=== PATIENT | male | born 1935 | race Caucasian/White ===

== ENCOUNTER 2018-09-16 01:34 | Observation (INO) ==
[2018-09-16] MEDS ORDERED: Sod Chloride 0.9% Inj 1,000 ML IV.CONT SCH (02:00)
--- NOTE | 2018-09-16 02:23 | XR ---
EXAM DATE: 09/16/2018 2:11 AM EST AGE/SEX: 82 years / Male INDICATIONS: Abdominal pain, shortness of breath. CLINICAL DATA: This is the patient's initial encounter. Patient reports that signs and symptoms have been present for 1 day and indicates a pain score of 0/10. MEDICAL/SURGICAL HISTORY: None. None. COMPARISON: No prior exams available for comparison. FINDINGS: A single AP view of the chest demonstrates the lungs to be symmetrically aerated without evidence of mass, infiltrate or effusion. Atherosclerotic changes are present in the aorta with calcification. T here are overlying electrocardiogram leads. The cardiomediastinal contours are unremarkable. Osseous structures are intact. CONCLUSION: No acute cardiopulmonary disease. Electronically signed by: Jonny Chakraborty MD 09/16/2018 2:21 AM EST
[2018-09-16 02:52] LABS: Baso % (Auto) 0.4 % (0.0-2.0); Eos % (Auto) 0.3 % (0.0-4.0); Hematocrit 40.1 % (39.0-51.0); Hemoglobin 13.1 gm/dL (13.0-17.0); Lymph # (Auto) 0.5 th/mm3 (1.0-4.8); Lymph % (Auto) 7.8 % (9.0-44.0); Mean Corpuscular HGB Conc 32.7 % (32.0-36.0); Mean Corpuscular Hemoglobin 30.2 pg (27.0-34.0); Mean Corpuscular Volume 92.3 fL (80.0-100.0); Mean Platelet Volume 9.3 fL (7.0-11.0); Mono # (Auto) 0.3 th/mm3 (0.0-0.9); Mono % (Auto) 4.9 % (0.0-8.0); Neut # (Auto) 5.7 th/mm3 (1.8-7.7); Neut % (Auto) 86.6 % (16.0-70.0); Platelet Count 145 th/mm3 (150-450); Red Blood Count 4.34 mil/mm3 (4.50-5.90); Red Cell Distribution Width 13.8 % (11.6-17.2); White Blood Count 6.5 th/mm3 (4.0-11.0)
[2018-09-16 02:56] LABS: Amorphous Sediment,Urine Few /hpf; Bilirubin,Urine Negative (Negative); Clarity,Urine Cloudy (Clear); Color,Urine Yellow (Yellw/Straw); Glucose,Urine (UA) Negative (Negative); Leukocyte Esterase,Urine Negative (Negative); Mucus,Urine Few /lpf (Occasional); Nitrite,Urine Negative (Negative); Specific Gravity,Urine 1.013 (1.002-1.035); Squamous Epithelial Cell,Urine 1 /hpf (0-5)
[2018-09-16 02:59] LABS: Alanine Aminotransferase 7 U/L (12-78); Albumin 3.8 g/dL (3.4-5.0); Anion Gap 7 meq/L (5-15); Aspartate Aminotransferase 16 U/L (15-37); Blood Urea Nitrogen 22 mg/dL (7-18); Carbon Dioxide 26.1 meq/L (21.0-32.0); Chloride 107 meq/L (98-107); Glomerular Filtration Rate 70 mL/min (>89); Glucose,Random 153 mg/dL (74-106); Lipase 95 U/L (73-393); Magnesium 2.3 mg/dL (1.5-2.5); Potassium 4.3 meq/L (3.5-5.1); Sodium 140 meq/L (136-145)
[2018-09-16 03:02] LABS: Alkaline Phosphatase 70 U/L (45-117); Total Protein 7.2 g/dL (6.4-8.2)
[2018-09-16 03:04] LABS: Activated Partial Thrombo Time 26.1 sec (23.4-31.7); INR 1.1 Ratio; Prothrombin Time 10.9 sec (9.8-11.6)
--- NOTE | 2018-09-16 03:13 | ED ---
HPI General Chief Complaint: Abdominal Pain Stated Complaint: Medical Time Seen by Provider: 09/16/18 01:57 Source: patient Mode of arrival: EMS Limitations: no limitations History of Present Illness HPI narrative: 82-year-old male presents to the emergency department by EMS transport from home for some complaint of severe generalized abdominal pain primarily periumbilical with marked nausea and some spitting up no bilious emesis no coffee-ground emesis and no hematemesis. Patient denies any melena hematochezia or diarrhea. No fever or chills. No dysuria frequency urgency or hematuria. No injury or fall. No chest pain or shortness of breath. Patient rates pain as moderate to severe. Nonradiating. complaint: Reports abdominal pain Onset (ago): hour(s) Pain Consistency: constant Location: Reports periumbilical Quality: Reports cramping and aching Radiation: Reports none Migration to: Reports no migration Relieving factors: nothing Exacerbating factors: nothing Context: Denies foreign travel, possible food poisoning, sick contacts, recent antibiotic use, recent surgery/procedure, recent injury and history of similar episodes Associated symptoms: Reports nausea; Denies vomiting, diarrhea, fever, chills, constipation, dysuria, hematemesis, hematochezia, melena, hematuria, anorexia and syncope Treatments prior to arrival: Denies NSAIDs, prescription analgesics and antacids Related Data Home Medications Medication Instructions Recorded Confirmed Lactobacillus rhamnosus GG 1 cap PO DAILY 09/16/18 09/16/18 [Culturelle] amantadine HCl 200 mg PO BID 09/16/18 09/16/18 carbidopa-levodopa 1 tab PO HS 09/16/18 09/16/18 carbidopa-levodopa 1 tab PO QID 09/16/18 09/16/18 lisinopril 10 mg PO DAILY 09/16/18 09/16/18 oxybutynin chloride 5 mg PO DAILY 09/16/18 09/16/18 tamsulosin 0.4 mg PO BID 09/16/18 09/16/18 Allergies Allergy/AdvReac Type Severity Reaction Status Date / Time No Known Allergies Allergy Verified 09/16/18 01:58 Review of Systems ROS: all other systems reviewed are negative [facility] Medical History Medical History HTN (hypertension) (Acute) Parkinson disease (Acute) Social History Social History Substance History: No History of Abuse Second Hand Smoke Exposure: No Smoking Status: Former smoker Tobacco Type: Cigarettes How Often Do You Have a Drink Containing Alcohol: Monthly or less Recent Travel in [facility] within the Last 8 Weeks: No Recent Out of Country Travel within the Last 8 Weeks: No Immunization History Tetanus Immunization: >5 Years Exam Narrative Exam Narrative: GENERAL: Well-nourished, well-developed patient. SKIN: Focused skin assessment warm/dry. HEAD: Normocephalic. EYES: No scleral icterus. No injection or drainage. NECK: Supple, trachea midline. No JVD or lymphadenopathy. CARDIOVASCULAR: Regular rate and rhythm without murmurs, gallops, or rubs. RESPIRATORY: Breath sounds equal bilaterally. No accessory muscle use. GASTROINTESTINAL: Abdomen soft, mild periumbilical tenderness no palpable pulsatile mass no guarding no rebound, nondistended. MUSCULOSKELETAL: No cyanosis, or edema. BACK: Nontender without obvious deformity. No CVA tenderness. Course Initial Documented Vital Signs Temperature 98.7 F 09/16/18 02:06 Pulse Rate 74 09/16/18 02:06 Respiratory Rate 22 09/16/18 02:06 Blood Pressure 187/87 H 09/16/18 02:06 Pulse Oximetry 100 09/16/18 02:06 Last Documented Vital Signs Temperature 98.7 F 09/16/18 02:06 Pulse Rate 89 09/16/18 05:37 Respiratory Rate 17 09/16/18 05:37 Blood Pressure 162/79 H 09/16/18 05:37 Pulse Oximetry 97 09/16/18 05:37 Medical Decision Making MDM Narrative Medical decision making narrative: IV access obtained specimens collected and sent for resulting imaging study ordered Lab values remarkable for left shift by automated differential chemistries grossly within normal limits urinalysis no indication for culture and chest x- ray no subdiaphragmatic free air CT abdomen pelvis is pending CT abdomen pelvis remarkable for large left renal mass and ileus versus gastroenteritis pattern of the intestinal tract. Patient's case discussed with on-call medicine service for observation admission for bowel rest and IV fluids Medical Screen Exam Complete: Yes Emergency Medical Condition: Yes Differential Diagnosis Differential Diagnosis: Abdominal pain, cholecystitis, pancreatitis, bowel obstruction, mesenteric ischemia, appendicitis, diverticulitis, perforated viscus, abdominal aortic aneurysm, renal colic, ACS Medical Records Medical records reviewed: Yes I reviewed the patient's medical records. Lab Data Lab results reviewed: Yes I reviewed the patient's lab results. Result diagrams: 09/16/18 02:20 09/16/18 02:20 Lab Results 09/16/18 09/16/18 09/16/18 Range/Units 02:20 02:20 02:20 WBC (4.0-11.0) th/mm3 RBC (4.50-5.90) mil/mm3 Hgb (13.0-17.0) gm/dL Hct (39.0-51.0) % MCV (80.0-100.0) fL MCH (27.0-34.0) pg MCHC (32.0-36.0) % RDW (11.6-17.2) % Plt Count (150-450) th/mm3 MPV (7.0-11.0) fL Neut % (Auto) (16.0-70.0) % Lymph % (Auto) (9.0-44.0) % [place] % (Auto) (0.0-8.0) % Eos % (Auto) (0.0-4.0) % Baso % (Auto) (0.0-2.0) % Neut # (Auto) (1.8-7.7) th/mm3 Lymph # (Auto) (1.0-4.8) th/mm3 [place] # (Auto) (0.0-0.9) th/mm3 Eos # (Auto) (0.0-0.4) th/mm3 Baso # (Auto) (0.0-0.2) th/mm3 WBC Differential Differential Comment PT 10.9 (9.8-11.6) sec INR 1.1 Ratio APTT 26.1 (23.4-31.7) sec Sodium 140 (136-145) meq/L Potassium 4.3 (3.5-5.1) meq/L Chloride 107 (98-107) meq/L Carbon Dioxide 26.1 (21.0-32.0) meq/L Anion Gap 7 (5-15) meq/L BUN 22 H (7-18) mg/dL Creatinine 1.02 (0.60-1.30) mg/dL Estimated GFR 70 L (>89) mL/min Random Glucose 153 H (74-106) mg/dL Calcium 9.0 (8.5-10.1) mg/dL Magnesium 2.3 (1.5-2.5) mg/dL Total Bilirubin 0.5 (0.2-1.0) mg/dL AST 16 (15-37) U/L ALT 7 L (12-78) U/L Alkaline Phosphatase 70 (45-117) U/L Troponin I Less than 0.02 L (0.02-0.05) ng/mL Total Protein 7.2 (6.4-8.2) g/dL Albumin 3.8 (3.4-5.0) g/dL Lipase 95 (73-393) U/L Urine Color (Yellw/Straw) Urine Clarity (Clear) Urine pH (5.0-8.5) Ur Specific [place] (1.002-1.035) Urine Protein (Neg-Trace) mg/dL Urine Glucose (UA) (Negative) mg/dL Urine Ketones (Negative) mg/dL Urine Occult Blood (Negative) Urine Nitrate (Negative) Urine Bilirubin (Negative) Urine Urobilinogen (Less than 2) mg/dL Ur Leukocyte Esterase (Negative) Urine RBC (0-3) /hpf Urine WBC (0-5) /hpf Ur Squamous Epith Cells (0-5) /hpf Amorphous Sediment (None) /hpf Urine Mucus (Occasional) /lpf Micro UA Comment Ur Microscopic Review Urine Culture Comments Blood Type A Positive Blood Type Recheck Required Antibody Screen Negative 09/16/18 09/16/18 Range/Units 02:20 02:33 WBC 6.5 (4.0-11.0) th/mm3 RBC 4.34 L (4.50-5.90) mil/mm3 Hgb 13.1 (13.0-17.0) gm/dL Hct 40.1 (39.0-51.0) % MCV 92.3 (80.0-100.0) fL MCH 30.2 (27.0-34.0) pg MCHC 32.7 (32.0-36.0) % RDW 13.8 (11.6-17.2) % Plt Count 145 L (150-450) th/mm3 MPV 9.3 (7.0-11.0) fL Neut % (Auto) 86.6 H (16.0-70.0) % Lymph % (Auto) 7.8 L (9.0-44.0) % [place] % (Auto) 4.9 (0.0-8.0) % Eos % (Auto) 0.3 (0.0-4.0) % Baso % (Auto) 0.4 (0.0-2.0) % Neut # (Auto) 5.7 (1.8-7.7) th/mm3 Lymph # (Auto) 0.5 L (1.0-4.8) th/mm3 [place] # (Auto) 0.3 (0.0-0.9) th/mm3 Eos # (Auto) 0.0 (0.0-0.4) th/mm3 Baso # (Auto) 0.0 (0.0-0.2) th/mm3 WBC Differential . Differential Comment Auto diff final PT (9.8-11.6) sec INR Ratio APTT (23.4-31.7) sec Sodium (136-145) meq/L Potassium (3.5-5.1) meq/L Chloride (98-107) meq/L Carbon Dioxide (21.0-32.0) meq/L Anion Gap (5-15) meq/L BUN (7-18) mg/dL Creatinine (0.60-1.30) mg/dL Estimated GFR (>89) mL/min Random Glucose (74-106) mg/dL Calcium (8.5-10.1) mg/dL Magnesium (1.5-2.5) mg/dL Total Bilirubin (0.2-1.0) mg/dL AST (15-37) U/L ALT (12-78) U/L Alkaline Phosphatase (45-117) U/L Troponin I (0.02-0.05) ng/mL Total Protein (6.4-8.2) g/dL Albumin (3.4-5.0) g/dL Lipase (73-393) U/L Urine Color Yellow (Yellw/Straw) Urine Clarity Cloudy H (Clear) Urine pH 7.0 (5.0-8.5) Ur Specific [place] 1.013 (1.002-1.035) Urine Protein Negative (Neg-Trace) mg/dL Urine Glucose (UA) Negative (Negative) mg/dL Urine Ketones 20 (Negative) mg/dL Urine Occult Blood Negative (Negative) Urine Nitrate Negative (Negative) Urine Bilirubin Negative (Negative) Urine Urobilinogen Less than 2 (Less than 2) mg/dL Ur Leukocyte Esterase Negative (Negative) Urine RBC 9 H (0-3) /hpf Urine WBC 5 (0-5) /hpf Ur Squamous Epith Cells 1 (0-5) /hpf Amorphous Sediment Few H (None) /hpf Urine Mucus Few H (Occasional) /lpf Micro UA Comment Culture not ind Ur Microscopic Review Not Reportable Urine Culture Comments Culture not ind Blood Type Blood Type Recheck Antibody Screen Imaging Data Radiologist's impression: Abdomen/Pelvis CT 09/16/18 01:58 CONCLUSION: 1. 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 2. Nonspecific bowel gas pattern which may represent an ileus or gastroenteritis. A small bowel obstruction is less likely. 3. Small nonobstructing right renal calculus. Chest X-Ray 09/16/18 01:58 CONCLUSION: No acute cardiopulmonary disease. Discharge Plan Discharge Disposition Patient Disposition: 30 Still Patient Discharge Condition Condition: Stable Discharge Details Diagnosis: Ileus, Left kidney mass Physicians Team ED Provider: Ashley Tovar Primary Care Provider: UNKNOWN, Attending Provider: Radha Parra Status ED Status: Admitted Observation Patient
[2018-09-16] MEDS ORDERED: Morphine Inj 4 MG/ML Vial IV.PUSH ONE ×2 (03:36→05:46)
--- NOTE | 2018-09-16 04:32 | CT ---
EXAM DATE: 09/16/2018 4:06 AM EST AGE/SEX: 82 years / Male INDICATIONS: Abdominal pain with nausea and vomiting. CLINICAL DATA: This is the patient's initial encounter. Patient reports that signs and symptoms have been present for 1 day and indicates a pain score of 6/10. MEDICAL/SURGICAL HISTORY: Hypertension. Parkinson's disease. None. ORAL CONTRAST: No oral contrast ingested. RADIATION DOSE: 6.57 CTDI (mGy) COMPARISON: No prior exams available for comparison. TECHNIQUE: Multiple contiguous axial images were obtained through the abdomen and pelvis following b olus infusion of 90 ml Visipaque 320 (iodixanol) nonionic water-soluble contrast as a single exam d ose. No oral contrast ingested. Using automated exposure control and adjustment of the mA and/or kV according to patient size, radiation dose was kept as low as reasonably achievable to obtain optimal diagnostic quality images. DICOM format image data is available electronically for review and compar mayank. FINDINGS: Lower Lungs: The visualized lower lungs are clear. Liver: The liver has a homogeneous density without space-occupying lesion. There is no dilation of th e biliary tree. The gallbladder is unremarkable. Spleen: Homogeneous density without enlargement. Pancreas: Unremarkable without mass or calcification. Kidneys: The right kidney is unremarkable in appearance except for a nonobstructing 6 mm calculus. T he left kidney contains a large heterogeneous solid tumor mass in the central and upper kidney measur ing up to 10.3 x 8 x 9.3. This contains a small calcification. There is no hydronephrosis. Adrenal Glands: Unremarkable. Aorta: Atherosclerotic changes noted in the aorta with small distal infrarenal abdominal aortic ane urysm measuring up to approximately 3.4 x 3 cm. This contains peripheral thrombus. Bowel/Mesentery: No oral contrast was given limiting the sensitivity exam. There are multiple loops of nondilated small bowel multiple air-fluid levels. Gas and stool is noted segmentally in the colon. There is no free air or fluid. Abdominal Wall: Intact. Retroperitoneum: No evidence of adenopathy in the retrocrural, para-aortic, or deep pelvic regions. Bladder: Contours are smooth. Reproductive Organs: No abnormal masses or calcifications seen. Inguinal: The inguinal region is unremarkable without evidence of adenopathy. Bony Structures: Unremarkable. CONCLUSION: 1. Large solid tumor mass in the left mid and upper kidney most characteristic of renal cell carcino ma. 2. Nonspecific bowel gas pattern which may represent an ileus or gastroenteritis. A small bowel obst ruction is less likely. 3. Small nonobstructing right renal calculus. Electronically signed by: Jonny Chakraborty MD 09/16/2018 4:31 AM EST
[2018-09-16] MEDS: Heparin - SQ 10,000 UNITS/ML Vial SQ SCH ×2 (06:53→18:05)
[2018-09-16] MEDS: Sod Chloride 0.9% Inj 1,000 ML IV.CONT SCH ×2 (07:19→21:42)
--- NOTE | 2018-09-16 08:23 | P.HP ---
History of Present Illness Primary Care Physician: UNKNOWN Chief Complaint: Abdominal pain History of Present Illness: This is a pleasant 82 y/o male who came to the emergency department by EMS transport from home for some complaint of severe generalized abdominal pain primarily periumbilical with marked nausea and some spitting up no bilious emesis no coffee-ground emesis and no hematemesis. Patient denies any melena hematochezia or diarrhea. No fever or chills. No dysuria frequency urgency or hematuria. No injury or fall. No chest pain or shortness of breath. Patient rates pain as moderate to severe. Nonradiating. as constant abdominal pain, periumbilical, as a cramping sensation, he has Parkinson's Disease and Hypertension that was uncontrolled on admission, seen in the presence of his , he is been having this symptomatology since March this year and as per his words they slept on the evidence of GI symptoms and weight loss. Review of Systems All other systems reviewed negative except as stated in HPI PMFSH - History History Provided By: Patient, Family Member - Medical History Medical History: Medical History (Last Updated 09/16/18 @ 12:46 by Kendrick Cox MD) HTN (hypertension) Medical history unknown Surgical history unknown - Family History Family History: Family History (Last Updated 09/16/18 @ 12:46 by Kendrick Cox MD) Brother Family history of hypertension Mother Family history of cancer - Tobacco History Second Hand Smoke Exposure: No Tobacco Use In Past 30 Days: No Smoking Status: Former smoker Tobacco Type: Cigarettes - Alcohol History How Often Do You Have a Drink Containing Alcohol: Monthly or less - Substance Use History Substance History: No History of Abuse - Travel History Recent Travel in the [facility] Within the Last 8 Weeks: No Recent Travel Out of the Country Within the Last 8 Weeks: No - Immunization History Tetanus Immunization: >5 Years Medications and Allergies Active Medications: Active Medications Enalaprilat (Vasotec Inj) 1.25 mg IV.PUSH Q6H PRN PRN Reason: SBP>160, DBP>90 Heparin Sodium (Porcine) (Heparin Inj) 5,000 units SQ Q12H [facility] Last Admin: 09/16/18 06:53 Dose: 5,000 units Sodium Chloride (Ns Inj) 1,000 mls @ 125 mls/hr IV.CONT .Q8H [facility] Stop: 11/15/18 09:59 Last Admin: 09/16/18 02:15 Dose: 125 mls/hr Sodium Chloride (Ns Inj) 1,000 mls @ 80 mls/hr IV.CONT .[id number] [facility] Last Admin: 09/16/18 07:19 Dose: 80 mls/hr Ondansetron HCl (Zofran Inj) 4 mg IV.PUSH Q6H PRN PRN Reason: NAUSEA OR VOMITING Sodium Chloride (Ns Flush) 2 ml IV.FLUSH PRN PRN PRN Reason: FLUSH AFTER USING IV ACCESS Allergies Allergy/AdvReac Type Severity Reaction Status Date / Time No Known Allergies Allergy Verified 09/16/18 01:58 Home Medications Medication Instructions Recorded Confirmed Type Lactobacillus rhamnosus GG 1 cap PO DAILY 09/16/18 09/16/18 History [Culturelle] amantadine HCl 200 mg PO BID 09/16/18 09/16/18 History carbidopa-levodopa 1 tab PO HS 09/16/18 09/16/18 History carbidopa-levodopa 1 tab PO QID 09/16/18 09/16/18 History lisinopril 10 mg PO DAILY 09/16/18 09/16/18 History oxybutynin chloride 5 mg PO DAILY 09/16/18 09/16/18 History tamsulosin 0.4 mg PO BID 09/16/18 09/16/18 History Exam Vital signs: Vital Signs 09/16/18 02:06 09/16/18 02:10 09/16/18 05:37 Temperature 98.7 F Pulse Rate 74 74 89 Respiratory Rate 22 22 17 Blood Pressure 187/87 H 187/87 H 162/79 H Pulse Oximetry 100 100 97 09/16/18 06:56 Temperature Pulse Rate 83 Respiratory Rate 17 Blood Pressure 162/79 H Pulse Oximetry Intake & Output 09/15/18 09/16/18 09/16/18 18:59 06:59 18:59 Weight 64.41 kg 64.41 kg Other: Weight On Admission 64.41 kg Narrative: GENERAL: cachectic, No acute distress. SKIN: Focused skin assessment warm/dry. HEAD: Normocephalic. EYES: No scleral icterus. No injection or drainage. NECK: Supple, trachea midline. No JVD or lymphadenopathy. CARDIOVASCULAR: Regular rate and rhythm without murmurs, gallops, or rubs. RESPIRATORY: Breath sounds equal bilaterally. No accessory muscle use. GASTROINTESTINAL: Abdomen soft, mild periumbilical tenderness, positive ventral hernia. MUSCULOSKELETAL: No cyanosis, Edema 1+ BACK: Nontender without obvious deformity. No CVA tenderness. rative: IV access obtained specimens collected and sent for resulting imaging study ordered Results - Labs CBC & Chem 7: 09/16/18 02:20 09/16/18 02:20 Labs: Laboratory Results - last 24 hr 09/16/18 09/16/18 09/16/18 02:20 02:20 02:20 WBC RBC Hgb Hct MCV MCH MCHC RDW Plt Count MPV Neut % (Auto) Lymph % (Auto) [place] % (Auto) Eos % (Auto) Baso % (Auto) Neut # (Auto) Lymph # (Auto) [place] # (Auto) Eos # (Auto) Baso # (Auto) WBC Differential Differential Comment PT 10.9 INR 1.1 APTT 26.1 Sodium 140 Potassium 4.3 Chloride 107 Carbon Dioxide 26.1 Anion Gap 7 BUN 22 H Creatinine 1.02 Estimated GFR 70 L Random Glucose 153 H Calcium 9.0 Magnesium 2.3 Total Bilirubin 0.5 AST 16 ALT 7 L Alkaline Phosphatase 70 Troponin I Less than 0.02 L Total Protein 7.2 Albumin 3.8 Lipase 95 Urine Color Urine Clarity Urine pH Ur Specific [place] Urine Protein Urine Glucose (UA) Urine Ketones Urine Occult Blood Urine Nitrate Urine Bilirubin Urine Urobilinogen Ur Leukocyte Esterase Urine RBC Urine WBC Ur Squamous Epith Cells Amorphous Sediment Urine Mucus Micro UA Comment Ur Microscopic Review Urine Culture Comments Blood Type A Positive Blood Type Recheck Required Antibody Screen Negative 09/16/18 09/16/18 02:20 02:33 WBC 6.5 RBC 4.34 L Hgb 13.1 Hct 40.1 MCV 92.3 MCH 30.2 MCHC 32.7 RDW 13.8 Plt Count 145 L MPV 9.3 Neut % (Auto) 86.6 H Lymph % (Auto) 7.8 L [place] % (Auto) 4.9 Eos % (Auto) 0.3 Baso % (Auto) 0.4 Neut # (Auto) 5.7 Lymph # (Auto) 0.5 L [place] # (Auto) 0.3 Eos # (Auto) 0.0 Baso # (Auto) 0.0 WBC Differential . Differential Comment Auto diff final PT INR APTT Sodium Potassium Chloride Carbon Dioxide Anion Gap BUN Creatinine Estimated GFR Random Glucose Calcium Magnesium Total Bilirubin AST ALT Alkaline Phosphatase Troponin I Total Protein Albumin Lipase Urine Color Yellow Urine Clarity Cloudy H Urine pH 7.0 Ur Specific [place] 1.013 Urine Protein Negative Urine Glucose (UA) Negative Urine Ketones 20 Urine Occult Blood Negative Urine Nitrate Negative Urine Bilirubin Negative Urine Urobilinogen Less than 2 Ur Leukocyte Esterase Negative Urine RBC 9 H Urine WBC 5 Ur Squamous Epith Cells 1 Amorphous Sediment Few H Urine Mucus Few H Micro UA Comment Culture not ind Ur Microscopic Review Not Reportable Urine Culture Comments Culture not ind Blood Type Blood Type Recheck Antibody Screen - Imaging Abdomen/Pelvis CT 09/16/18 01:58 CONCLUSION: 1. 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 2. Nonspecific bowel gas pattern which may represent an ileus or gastroenteritis. A small bowel obstruction is less likely. 3. Small nonobstructing right renal calculus. Chest X-Ray 09/16/18 01:58 CONCLUSION: No acute cardiopulmonary disease. Caprini VTE Risk Assessment Caprini VTE Risk Assessment: Moderate/High Risk (score >= 2) Caprini Risk Assessment Model: Point Value = 1 Point Value = 2 Point Value = 3 Point Value = 5 Age 41-60 Minor surgery BMI > 25 kg/m2 Swollen legs Varicose veins or History of unexplained or recurrent spontaneous Oral contraceptives or hormone replacement Sepsis (< 1 month) Serious lung disease, including pneumonia (< 1 month) Abnormal pulmonary function Acute myocardial infarction Congestive heart failure (< 1 month) History of inflammatory bowel disease Medical patient at bed rest Age 61-74 Arthroscopic surgery Major open surgery (> 45 min) Laparoscopic surgery (> 45 min) Malignancy Confined to bed (> 72 hours) Immobilizing plaster cast Central venous access Age >= 75 History of VTE Family history of VTE Factor V Leiden Prothrombin [id number] Lupus anticoagulant Anticardiolipin antibodies Elevated serum homocysteine Heparin-induced thrombocytopenia Other congenital or acquired thrombophilia Stroke (< 1 month) Elective arthroplasty Hip, pelvis, or leg fracture Acute spinal cord injury (< 1 month) Prophylaxis Regimen: Total Risk Factor Score Risk Level Prophylaxis Regimen 0-1 Low Early ambulation 2 Moderate Order ONE of the following: *Sequential Compression Device (SCD) *Heparin 5000 units SQ BID 3-4 Higher Order ONE of the following medications: *Heparin 5000 units SQ TID *Enoxaparin/Lovenox 40 mg SQ daily (WT < 150 kg, CrCl > 30 mL/min) *Enoxaparin/Lovenox 30 mg SQ daily (WT < 150 kg, CrCl > 10-29 mL/min) *Enoxaparin/Lovenox 30 mg SQ BID (WT < 150 kg, CrCl > 30 mL/min) AND/OR *Sequential Compression Device (SCD) 5 or more Highest Order ONE of the following medications: *Heparin 5000 units SQ TID (Preferred with Epidurals) *Enoxaparin/Lovenox 40 mg SQ daily (WT < 150 kg, CrCl > 30 mL/min) *Enoxaparin/Lovenox 30 mg SQ daily (WT < 150 kg, CrCl > 10-29 mL/min) *Enoxaparin/Lovenox 30 mg SQ BID (WT < 150 kg, CrCl > 30 mL/min) AND *Sequential Compression Device (SCD) Assessment and Plan - Plan 1. Intractable Abdominal pain status post CT abdomen and Pelvis, found. 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 Small nonobstructing right renal calculus Nonspecific bowel gas pattern, asked for support services specialist consult, for evaluation, also asked for GI specialist consult, to reevaluate. 2. Ileus, Left kidney mass, awaiting Oncology and GI specialist consult. 3. Parkinson's Disease to continue home medicines. 4. Hypertension that was uncontrolled on admission, continue Home medicines. DVT prophylaxis with SCDs contraindicated Chemical Prophylaxis due to probable procedure to follow. Code Status: Full code. Discussed Condition With: Patient and His in Emergency room. Discharge Planning: Once cleared by specialists.
[2018-09-16] MEDS: Pantoprazole Inj 40 MG Vial IV.PUSH SCH (13:57)
--- NOTE | 2018-09-16 15:38 | MB ---
cc: Sigifredo Lake MD DATE: 09/16/2018 REQUESTING PHYSICIAN: Kendrick Cox MD REASON FOR CONSULTATION: Evaluation of newly diagnosed renal cancer. HISTORY OF PRESENT ILLNESS: An 82-year-old gentleman with a history of Parkinson's disease, has been admitted with a 1-2 days' history of abdominal pain, was found to have a small bowel ileus versus obstruction and a CT scan also demonstrated a large left renal mass. Hence, medical oncology consultation requested. The patient was seen in the emergency room and the patient and his family were interviewed. His son and were at the bedside and son informed me that because of his Parkinson disease, he is moving down to [facility] to live with him from [place]. Apparently, he had a history of BPH with severe urinary retention requiring hospitalization after emergency room visit for a catheterization. Subsequently, he did not have a prostate biopsy, but was being followed by Urology and was told that he does not have prostate cancer, but in the last several months, he has not been doing well with decreasing weight and lost about 25 pounds in the last 6 weeks according to him with some night sweats, but no fevers and no drenching night sweats. His appetite has been poor. REVIEW OF SYSTEMS: Negative for headaches, back pain or bone pains. Motor symptoms as mentioned with Parkinson's disease with rigidity and decreased global movements. No significant dysphagia. No cough, chest pain or shortness of breath. Abdominal symptoms as mentioned. No nausea, vomiting, hematuria or blood in stool or black stools. No back pain or bone pains. No fevers or night sweats. Weight loss as mentioned. PAST MEDICAL HISTORY: Other than Parkinson, he was healthy with no known coronary artery disease or OR. SOCIAL HISTORY: Ex-smoker. No alcohol abuse. No occupational exposure to chemicals or radiation. FAMILY HISTORY: Noncontributory. MEDICATIONS: He is on Vasotec, Zofran and subcutaneous heparin. PHYSICAL EXAMINATION: GENERAL: Elderly gentleman in no apparent distress, chronically ill looking, no acute distress. VITAL SIGNS: Stable. He is afebrile. Blood pressure was elevated on admission at 162/79. HEENT: Pallor present. No icterus. No palpable adenopathy in the neck, axilla or groins. With dry mucous membranes. No oropharyngeal lesions. No gum bleeding or hypertrophy. NEUROLOGIC: Alert and oriented x 4. Slow to respond. Flat facial expression and generalized bradykinesia, as well as tremor in the left upper extremity noted. CARDIOVASCULAR: S1, S2, regular rate and rhythm. LUNGS: Bilaterally clear without crackles or wheeze. ABDOMEN: Distended with an umbilical hernia and diffuse fullness without guarding, decreased to absent bowel sounds. No rigidity or rebound. No renal angle mass or tenderness could be felt. RECTAL: Deferred. EXTREMITIES: No edema or evidence of DVTs. LABORATORY DATA: Significant for white count of 6.2, hemoglobin 13.1, platelets 145. Creatinine is 1.02, BUN 22, GFR 70. CT of the abdomen and pelvis done earlier this morning showed large solid tumor in the left mid and upper kidney, most characteristic of renal cell carcinoma. Nonspecific small bowel gas pattern, which may represent an ileus or gastroenteritis. Small-bowel obstruction is less likely. Small nonobstructing right renal calculus. The left kidney tumor measures 10.3 x 8 x 9.3 cm. Chest x-ray is negative. IMPRESSION: An 82-year-old gentleman with a significant Parkinson disease, now with a newly diagnosed large left renal mass and history of benign prostatic hypertrophy causing severe bladder outlet obstruction. Currently not requiring catheterization. I had a 30-minute discussion with the patient and family regarding further options of evaluation and therapy. At this stage, he may not be a candidate for nephrectomy, specifically given his hypertension and history of urinary obstruction, right renal calculus, as well as his general condition, Parkinson disease, etc. Either way, we will obtain a urology consultation and the patient and family understand that if he is not a candidate for surgery per Urology, he will need to be treated with one of the following three options including systemic targeted therapy versus local radiation therapy for symptom relief if he has significant pain or bleeding from the renal tumor and a third option of supportive care without aggressive management was also discussed with the patient and family and they understood and we await urology consultation. We will consider a CT scan of the chest to rule out metastasis and we will see him and follow up in the office if he is from the hospital tomorrow. MD ECHO Castro/ani , 03:02 PM , 03:16 PM
--- NOTE | 2018-09-16 16:09 | P.CONGI ---
History of Present Illness Consult date: 09/16/18 Consult reason: Intractable abdominal pain Abdominal mass Chief complaint: Ileus; Renal Mass History of Present Illness: Patient is a 82-year-old male with past medical history significant for hypertension and Parkinson's disease. Surgical history includes umbilical and ventral hernia repair. Patient presented to the emergency department at [facility] today accompanied by his daughter with complaint of generalized abdominal pain. Upon consultation, patient reports pain left mid to upper quadrant states that it radiates to his back. Patient describes the pain as a sharp pain and states that it is constant. Onset of pain was last night at 9 PM patient states he took Gaviscon for same without relief. Patient denies any associated nausea or vomiting and states the only alleviating factor is the administration of morphine for pain. Movement is an aggravating factor per patient. Patient states last BM was yesterday with no noted bleeding. Patient denies constipation or diarrhea. States last colonoscopy was done 10 years ago to his recollection. States polyps were found and found to be benign. Patient denies heartburn or any symptoms of acid reflux. Patient denies difficulty swallowing. He endorses familial history significant for colon cancer-mother. Denies any use of tobacco or alcohol products. Patient denies any use of NSAIDs and states he takes aspirin occasionally. Our service has been consulted to evaluate patient for intractable abdominal pain. Of note, upon admission, CT abdomen and pelvis revealed large solid tumor mass in left mid and upper kidney suggestive of renal cell carcinoma. <Stephanie Mayorga - Last Filed: 09/16/18 16:09> Review of Systems All other systems reviewed negative except as stated in HPI <Stephanie Mayorga - Last Filed: 09/16/18 16:09> PMFSH - History History Provided By: Patient, Family Member - Medical History Medical History: Medical History (Last Updated 09/16/18 @ 13:39 by Geeta Mcfarland RN) HTN (hypertension) Medical history unknown Parkinson disease Surgical history unknown Urinary retention due to benign prostatic hyperplasia Ventral hernia - Surgical History Surgical History: Surgical History (Last Updated 09/16/18 @ 13:42 by Geeta Mcfarland RN) H/O arthroscopy of right knee H/O umbilical hernia repair - Family History Family History: Family History (Last Reviewed 09/16/18 @ 13:42 by Geeta Mcfarland RN) Brother Family history of hypertension Mother Family history of cancer - Tobacco History Second Hand Smoke Exposure: No Tobacco Use In Past 30 Days: No (quit 30 years ago) Smoking Status: Former smoker Tobacco Type: Cigarettes - Alcohol History How Often Do You Have a Drink Containing Alcohol: Never - Substance Use History Substance History: No History of Abuse - Travel History Recent Travel in the [place] Within the Last 8 Weeks: No Recent Travel Out of the Country Within the Last 8 Weeks: No - Immunization History Tetanus Immunization: >5 Years <Stephanie Mayorga - Last Filed: 09/16/18 16:09> - Medical History Medical History: Medical History (Last Updated 09/16/18 @ 13:39 by Geeta Mcfarland RN) HTN (hypertension) Medical history unknown Parkinson disease Surgical history unknown Urinary retention due to benign prostatic hyperplasia Ventral hernia - Surgical History Surgical History: Surgical History (Last Updated 09/16/18 @ 13:42 by Geeta Mcfarland RN) H/O arthroscopy of right knee H/O umbilical hernia repair - Family History Family History: Family History (Last Reviewed 09/16/18 @ 13:42 by Geeta Mcfarland RN) Brother Family history of hypertension Mother Family history of cancer <Keaton Eid - Last Filed: 09/16/18 19:57> Medications and Allergies Active Medications: Active Medications Enalaprilat (Vasotec Inj) 1.25 mg IV.PUSH Q6H PRN PRN Reason: SBP>160, DBP>90 Heparin Sodium (Porcine) (Heparin Inj) 5,000 units SQ Q12H [facility] Last Admin: 09/16/18 06:53 Dose: 5,000 units Sodium Chloride (Ns Inj) 1,000 mls @ 80 mls/hr IV.CONT .[id number] [facility] Last Infusion: 09/16/18 13:31 Dose: 80 mls/hr Ondansetron HCl (Zofran Inj) 4 mg IV.PUSH Q6H PRN PRN Reason: NAUSEA OR VOMITING Pantoprazole Sodium (Protonix Inj) 40 mg IV.PUSH Q24H [facility] Last Admin: 09/16/18 13:57 Dose: 40 mg Sodium Chloride (Ns Flush) 2 ml IV.FLUSH PRN PRN PRN Reason: FLUSH AFTER USING IV ACCESS <Stephanie Mayorga - Last Filed: 09/16/18 16:09> Active Medications: Active Medications Amantadine HCl (Symmetrel) 200 mg PO BID [facility] Carbidopa/Levodopa (Sinemet 25/100 Mg) 1 tab PO QID [facility] Carbidopa/Levodopa (Sinemet Cr 50/200 Mg) 1 tab PO HS [facility] Enalaprilat (Vasotec Inj) 1.25 mg IV.PUSH Q6H PRN PRN Reason: SBP>160, DBP>90 Last Admin: 09/16/18 19:27 Dose: 1.25 mg Heparin Sodium (Porcine) (Heparin Inj) 5,000 units SQ Q12H [facility] Last Admin: 09/16/18 18:05 Dose: 5,000 units Sodium Chloride (Ns Inj) 1,000 mls @ 80 mls/hr IV.CONT .[id number] [facility] Last Infusion: 09/16/18 13:31 Dose: 80 mls/hr Lisinopril (Prinivil) 10 mg PO DAILY [facility] Ondansetron HCl (Zofran Inj) 4 mg IV.PUSH Q6H PRN PRN Reason: NAUSEA OR VOMITING Oxybutynin Chloride (Ditropan) 5 mg PO DAILY [facility] Pantoprazole Sodium (Protonix Inj) 40 mg IV.PUSH Q24H [facility] Last Admin: 09/16/18 13:57 Dose: 40 mg Sodium Chloride (Ns Flush) 2 ml IV.FLUSH PRN PRN PRN Reason: FLUSH AFTER USING IV ACCESS Tamsulosin HCl (Flomax) 0.4 mg PO BID [facility] <Keaton Eid - Last Filed: 09/16/18 19:57> Allergies Allergy/AdvReac Type Severity Reaction Status Date / Time No Known Allergies Allergy Verified 09/16/18 01:58 Home Medications Medication Instructions Recorded Confirmed Type Lactobacillus rhamnosus GG 1 cap PO DAILY 09/16/18 09/16/18 History [Culturelle] amantadine HCl 200 mg PO BID 09/16/18 09/16/18 History carbidopa-levodopa 1 tab PO HS 09/16/18 09/16/18 History carbidopa-levodopa 1 tab PO QID 09/16/18 09/16/18 History lisinopril 10 mg PO DAILY 09/16/18 09/16/18 History oxybutynin chloride 5 mg PO DAILY 09/16/18 09/16/18 History tamsulosin 0.4 mg PO BID 09/16/18 09/16/18 History Exam Vital signs: Vital Signs 09/16/18 02:06 09/16/18 02:10 09/16/18 05:37 Temperature 98.7 F Pulse Rate 74 74 89 Respiratory Rate 22 22 17 Blood Pressure 187/87 H 187/87 H 162/79 H Pulse Oximetry 100 100 97 09/16/18 06:56 09/16/18 13:00 Temperature Pulse Rate 83 72 Respiratory Rate 17 16 Blood Pressure 162/79 H 165/77 H Pulse Oximetry 98 Intake & Output 09/15/18 09/16/18 09/16/18 18:59 06:59 18:59 Intake Total 1400 / 1400 Balance 1400 / 1400 Weight 64.41 kg 64.41 kg Intake: IV 1400 / 1400 NS Inj 1,000 ML @ 80 mls/hr IV. 1400 / 1400 CONT .[id number] [facility] Rx#:[id number] Other: Weight On Admission 64.41 kg - Constitutional mild distress Comments: Generalized abdominal pain, left mid to upper quadrant radiating to patient's back - Routine HEENT Exam Head: Present: normocephalic - Routine Respiratory Exam Present: CTA bilaterally. Absent: accessory muscle use - Routine Cardiovascular Exam Present: S1, S2 - Routine Abdominal Exam Present: soft, normoactive bowel sounds, tenderness, guarding. Absent: distended, firm, rigid - Routine Extremities Exam Present: pulses intact. Absent: edema - Routine Skin Exam Present: dry, warm - Routine Neurological Exam Present: alert - Routine Psychiatric Exam Present: normal affect, cooperative <Mayorga,Stephanie - Last Filed: 09/16/18 16:09> Vital signs: Vital Signs 09/16/18 02:06 09/16/18 02:10 09/16/18 05:37 Temperature 98.7 F Pulse Rate 74 74 89 Respiratory Rate 22 22 17 Blood Pressure 187/87 H 187/87 H 162/79 H Pulse Oximetry 100 100 97 09/16/18 06:56 09/16/18 13:00 09/16/18 16:00 Temperature 98.2 F Pulse Rate 83 72 79 Respiratory Rate 17 16 18 Blood Pressure 162/79 H 165/77 H 196/95 H Pulse Oximetry 98 96 Intake & Output 09/16/18 09/16/18 09/17/18 06:59 18:59 06:59 Intake Total 1400 / 1400 Balance 1400 / 1400 Weight 64.41 kg 64.41 kg Intake: IV 1400 / 1400 NS Inj 1,000 ML @ 80 mls/hr IV. 1400 / 1400 CONT .[id number] [facility] Rx#:[id number] Other: Weight On Admission 64.41 kg <Keaton Eid - Last Filed: 09/16/18 19:57> Results - Labs CBC & Chem 7: 09/16/18 02:20 09/16/18 02:20 Labs: Laboratory Results - last 24 hr 09/16/18 09/16/18 09/16/18 02:20 02:20 02:20 WBC RBC Hgb Hct MCV MCH MCHC RDW Plt Count MPV Neut % (Auto) Lymph % (Auto) Boyle % (Auto) Eos % (Auto) Baso % (Auto) Neut # (Auto) Lymph # (Auto) Boyle # (Auto) Eos # (Auto) Baso # (Auto) WBC Differential Differential Comment PT 10.9 INR 1.1 APTT 26.1 Sodium 140 Potassium 4.3 Chloride 107 Carbon Dioxide 26.1 Anion Gap 7 BUN 22 H Creatinine 1.02 Estimated GFR 70 L Random Glucose 153 H Calcium 9.0 Magnesium 2.3 Total Bilirubin 0.5 AST 16 ALT 7 L Alkaline Phosphatase 70 Troponin I Less than 0.02 L Total Protein 7.2 Albumin 3.8 Lipase 95 Urine Color Urine Clarity Urine pH Ur Specific Laurel Urine Protein Urine Glucose (UA) Urine Ketones Urine Occult Blood Urine Nitrate Urine Bilirubin Urine Urobilinogen Ur Leukocyte Esterase Urine RBC Urine WBC Ur Squamous Epith Cells Amorphous Sediment Urine Mucus Micro UA Comment Ur Microscopic Review Urine Culture Comments Blood Type A Positive Blood Type Recheck Required Antibody Screen Negative 09/16/18 09/16/18 02:20 02:33 WBC 6.5 RBC 4.34 L Hgb 13.1 Hct 40.1 MCV 92.3 MCH 30.2 MCHC 32.7 RDW 13.8 Plt Count 145 L MPV 9.3 Neut % (Auto) 86.6 H Lymph % (Auto) 7.8 L Boyle % (Auto) 4.9 Eos % (Auto) 0.3 Baso % (Auto) 0.4 Neut # (Auto) 5.7 Lymph # (Auto) 0.5 L Boyle # (Auto) 0.3 Eos # (Auto) 0.0 Baso # (Auto) 0.0 WBC Differential . Differential Comment Auto diff final PT INR APTT Sodium Potassium Chloride Carbon Dioxide Anion Gap BUN Creatinine Estimated GFR Random Glucose Calcium Magnesium Total Bilirubin AST ALT Alkaline Phosphatase Troponin I Total Protein Albumin Lipase Urine Color Yellow Urine Clarity Cloudy H Urine pH 7.0 Ur Specific Laurel 1.013 Urine Protein Negative Urine Glucose (UA) Negative Urine Ketones 20 Urine Occult Blood Negative Urine Nitrate Negative Urine Bilirubin Negative Urine Urobilinogen Less than 2 Ur Leukocyte Esterase Negative Urine RBC 9 H Urine WBC 5 Ur Squamous Epith Cells 1 Amorphous Sediment Few H Urine Mucus Few H Micro UA Comment Culture not ind Ur Microscopic Review Not Reportable Urine Culture Comments Culture not ind Blood Type Blood Type Recheck Antibody Screen - Imaging Impressions Abdomen/Pelvis CT 09/16/18 01:58 CONCLUSION: 1. 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 2. Nonspecific bowel gas pattern which may represent an ileus or gastroenteritis. A small bowel obstruction is less likely. 3. Small nonobstructing right renal calculus. Chest X-Ray 09/16/18 01:58 CONCLUSION: No acute cardiopulmonary disease. <Stephanie Mayorga - Last Filed: 09/16/18 16:09> - Labs CBC & Chem 7: 09/16/18 02:20 09/16/18 02:20 Labs: Laboratory Results - last 24 hr 09/16/18 09/16/18 09/16/18 02:20 02:20 02:20 WBC RBC Hgb Hct MCV MCH MCHC RDW Plt Count MPV Neut % (Auto) Lymph % (Auto) Boyle % (Auto) Eos % (Auto) Baso % (Auto) Neut # (Auto) Lymph # (Auto) Boyle # (Auto) Eos # (Auto) Baso # (Auto) WBC Differential Differential Comment PT 10.9 INR 1.1 APTT 26.1 Sodium 140 Potassium 4.3 Chloride 107 Carbon Dioxide 26.1 Anion Gap 7 BUN 22 H Creatinine 1.02 Estimated GFR 70 L Random Glucose 153 H Calcium 9.0 Magnesium 2.3 Total Bilirubin 0.5 AST 16 ALT 7 L Alkaline Phosphatase 70 Troponin I Less than 0.02 L Total Protein 7.2 Albumin 3.8 Triglycerides Cholesterol LDL Cholesterol, Calc HDL Cholesterol Cholesterol/HDL Ratio Lipase 95 TSH Urine Color Urine Clarity Urine pH Ur Specific Laurel Urine Protein Urine Glucose (UA) Urine Ketones Urine Occult Blood Urine Nitrate Urine Bilirubin Urine Urobilinogen Ur Leukocyte Esterase Urine RBC Urine WBC Ur Squamous Epith Cells Amorphous Sediment Urine Mucus Micro UA Comment Ur Microscopic Review Urine Culture Comments Blood Type A Positive Blood Type Recheck Required Antibody Screen Negative 09/16/18 09/16/18 09/16/18 02:20 02:33 16:32 WBC 6.5 RBC 4.34 L Hgb 13.1 Hct 40.1 MCV 92.3 MCH 30.2 MCHC 32.7 RDW 13.8 Plt Count 145 L MPV 9.3 Neut % (Auto) 86.6 H Lymph % (Auto) 7.8 L Boyle % (Auto) 4.9 Eos % (Auto) 0.3 Baso % (Auto) 0.4 Neut # (Auto) 5.7 Lymph # (Auto) 0.5 L Boyle # (Auto) 0.3 Eos # (Auto) 0.0 Baso # (Auto) 0.0 WBC Differential . Differential Comment Auto diff final PT INR APTT Sodium Potassium Chloride Carbon Dioxide Anion Gap BUN Creatinine Estimated GFR Random Glucose Calcium Magnesium Total Bilirubin AST ALT Alkaline Phosphatase Troponin I Total Protein Albumin Triglycerides 74 Cholesterol 198 LDL Cholesterol, Calc 133 H HDL Cholesterol 50.1 Cholesterol/HDL Ratio 3.95 Lipase TSH 1.380 Urine Color Yellow Urine Clarity Cloudy H Urine pH 7.0 Ur Specific Laurel 1.013 Urine Protein Negative Urine Glucose (UA) Negative Urine Ketones 20 Urine Occult Blood Negative Urine Nitrate Negative Urine Bilirubin Negative Urine Urobilinogen Less than 2 Ur Leukocyte Esterase Negative Urine RBC 9 H Urine WBC 5 Ur Squamous Epith Cells 1 Amorphous Sediment Few H Urine Mucus Few H Micro UA Comment Culture not ind Ur Microscopic Review Not Reportable Urine Culture Comments Culture not ind Blood Type Blood Type Recheck Antibody Screen - Imaging Impressions Abdomen/Pelvis CT 09/16/18 01:58 CONCLUSION: 1. 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 2. Nonspecific bowel gas pattern which may represent an ileus or gastroenteritis. A small bowel obstruction is less likely. 3. Small nonobstructing right renal calculus. Chest X-Ray 09/16/18 01:58 CONCLUSION: No acute cardiopulmonary disease. <Keaton Eid - Last Filed: 09/16/18 19:57> Assessment and Plan (1) Ileus Status: Acute Code(s): K56.7 - Ileus, unspecified - Plan Patient is a 82-year-old male with past medical history significant for hypertension and Parkinson's disease. Surgical history includes ventral and umbilical hernia repair. Patient presented to the emergency department at [facility] today accompanied by his daughter with complaint of generalized abdominal pain. Upon consultation, patient reports pain left mid to upper quadrant states that it radiates to his back. Patient describes the pain as a sharp pain and states that it is constant. Onset of pain was last night at 9 PM patient states he took Gaviscon for same without relief. Patient denies any associated nausea or vomiting and states the only alleviating factor is the administration of morphine for pain. Movement is an aggravating factor per patient. Patient states last BM was yesterday with no noted bleeding. Patient denies constipation or diarrhea. States last colonoscopy was done 10 years ago to his recollection. States polyps were found and found to be benign. Patient denies heartburn or any symptoms of acid reflux. Patient denies difficulty swallowing. He endorses familial history significant for colon cancer-mother. Denies any use of tobacco or alcohol products. Patient denies any use of NSAIDs and states he takes aspirin occasionally. Our service has been consulted to evaluate patient for intractable abdominal pain. Of note, upon admission, CT abdomen and pelvis revealed large solid tumor mass in left mid and upper kidney suggestive of renal cell carcinoma. Abdominal pain Ileus Patient presented to [facility] today with complaint of abdominal pain. Patient points to left mid and upper quadrant. Describes pain as sharp and constant alleviated only by morphine. 09/16/2018 CT abdomen and pelvis revealed the following--> 1. 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 2. Nonspecific bowel gas pattern which may represent an ileus or gastroenteritis. A small bowel obstruction is less likely. 3. Small nonobstructing right renal calculus. Patient's daughter reports that patient had BM yesterday and has been having daily BMs with positive flatus. Hemoglobin 13.1 hematocrit 40.1 WBC 6.5 total bilirubin 0.5 AST 16 ALT 7 alk phos 70 lipase 95 Plan -N.p.o. ice chips -May start clear liquid diet in the a.m. if no vomiting -Oncology following -Urology following -Monitor labs -Analgesics and antiemetics as per attending -Continue IV hydration -Continue PPI -Supportive care -Further recommendations to follow This patient has been seen by myself and Dr. Eid and this note is written on his behalf - Attending Attestation Dr. Eid <Stephanie Mayorga - Last Filed: 09/16/18 16:09> (1) Ileus Status: Acute Code(s): K56.7 - Ileus, unspecified - Plan Agree with above note, most likely renal cancer, nonspecific bowel gas pattern could be ileus continue current care and wait for oncology input <Keaton Eid - Last Filed: 09/16/18 19:57>
[2018-09-16 17:52] LABS: Chol/HDL Ratio 3.95 Ratio; HDL Cholesterol 50.1 mg/dL (40.0-60.0); Thyroid Stimulating Hormone 1.38 uIU/mL (0.358-3.740)
--- NOTE | 2018-09-16 18:13 | MB ---
cc: Julius Connors MD DATE: 09/16/2018 REASON FOR CONSULTATION: 1. Large left solid renal mass suspicious for renal cell carcinoma. 2. History of BPH. 3. History of Parkinson's disease. HISTORY OF PRESENT ILLNESS: The patient is an 82-year-old male with history of Parkinson's disease with prior urinary retention in the past, who came into the emergency department in by EMS as a transport from home earlier today with complaints of severe generalized abdominal pain, primarily periumbilical radiating to his left side with nausea and some vomiting. During workup, he had a CT abdomen and pelvis with and without contrast performed, which showed a large, greater than 6 cm upper pole left renal mass suspicious for renal cell carcinoma. Urology is consulted for these findings. The patient states he has no previous knowledge of this mass. He denies hematuria or flank pain, weight loss or bone or back pain. He states he has had difficulty urinating in the past and had a catheter placed, he thinks this past Oralia due to urinary retention, but currently, he states he has been voiding without difficulties. He does take both Flomax and oxybutynin. He denies history of kidney stones, urinary tract infections. Denies prior abdominal surgery or taking any blood thinners. Denies fevers, chills. Has nausea that is currently resolved. Denies any current pain, but he did receive morphine for the pain. PAST MEDICAL HISTORY: Hypertension, Parkinson's disease, BPH. PAST SURGICAL HISTORY: Circumcision, umbilical hernia repair, right knee arthroscopy. FAMILY HISTORY: No urethrolysis, or genitourinary malignancies. SOCIAL HISTORY: Quit smoking approximately 30 years ago. Denies alcohol or illicit drugs. Currently . HOME MEDICATIONS: 1. Carbidopa/levodopa. 2. Vasotec. 3. Oxybutynin. 4. Tamsulosin. 5. Lisinopril. 6. Amantadine. ALLERGIES: NO KNOWN DRUG ALLERGIES. REVIEW OF SYSTEMS: See HPI. All systems reviewed, otherwise negative. PHYSICAL EXAMINATION: VITAL SIGNS: Temperature 98.2, pulse 79, respiratory rate 18, BP 196/95, saturating 96% on room air. GENERAL: Alert and oriented x3, in no apparent distress, pleasant and cooperative gentleman who appears older than his stated age. HEENT: Head is normocephalic, atraumatic. Eyes: No scleral icterus extraocular muscles intact. NECK: Supple. Trachea midline. No JVD. External auditory hearing normal. SKIN: No ulcers or rashes visible. Mucous membranes warm and moist. LUNGS: Clear bilaterally. No wheezes, rales or rhonchi. HEART: Regular rate and rhythm. No murmurs, gallops, rubs. ABDOMEN: Soft, nontender and nondistended. Positive bowel sounds. GENITOURINARY: His penis is circumcised. Tests are descended bilaterally. Normal size and consistency without mass. He has no CVA tenderness. RECTAL: Not indicated at this time. EXTREMITIES: Nontender. No clubbing, cyanosis or edema. NEUROLOGIC: Cranial nerves 2-12 intact. Strength 5/5 in all 4 extremities. PSYCHIATRIC: Slightly flat slow affect, but answers questions appropriately. LABORATORY DATA: White count 6.5, hemoglobin 13.1, hematocrit 40.1, platelet count 145. INR 1.1. Sodium 140, potassium 4.3, chloride 107, bicarbonate 26.1, creatinine 1.02, BUN 22, GFR 70, glucose 153, calcium 9.0. Urinalysis slightly cloudy with 9 red blood cells. RADIOLOGY STUDIES: CT abdomen and pelvis with and without contrast images were reviewed and agree with radiologist's report. The patient has a large solid enhancing heterogeneous left upper pole renal mass suspicious for renal cell carcinoma. No lymphadenopathy is seen. No stones or hydronephrosis. ASSESSMENT: The patient is an 82-year-old male with history of Parkinson disease, who was admitted with lower abdominal pain, nausea and vomiting, currently resolved and was found to have incidental large left solid enhancing renal mass. 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 However, we will first rule out metastatic disease and obtain a CT of his chest without contrast. If negative, then his potential surgery could be arranged on an outpatient basis as he will be medically cleared and scheduled for in the future. We will continue tamsulosin and oxybutynin for now. We will check a postvoid residual after his next void to ensure that he is properly emptying. Thank you for this consult. Julius Connors MD EMF/ct , 04:53 PM , 05:06 PM
[2018-09-16] MEDS: Carbidopa/Levodopa CR 50/200 MG Tablet PO SCH (21:38)
[2018-09-16] MEDS: Amantadine 100 MG Capsule PO SCH (21:42)
[2018-09-17] MEDS: Heparin - SQ 10,000 UNITS/ML Vial SQ SCH (06:30)
[2018-09-17 07:47] LABS: Baso % (Auto) 0.5 % (0.0-2.0); Eos % (Auto) 0.6 % (0.0-4.0); Hematocrit 38.3 % (39.0-51.0); Hemoglobin 12.3 gm/dL (13.0-17.0); Lymph # (Auto) 0.7 th/mm3 (1.0-4.8); Mean Corpuscular HGB Conc 32.2 % (32.0-36.0); Mean Corpuscular Hemoglobin 31.8 pg (27.0-34.0); Mean Corpuscular Volume 98.8 fL (80.0-100.0); Mean Platelet Volume 9.3 fL (7.0-11.0); Mono # (Auto) 0.5 th/mm3 (0.0-0.9); Neut # (Auto) 4.8 th/mm3 (1.8-7.7); Neut % (Auto) 78.9 % (16.0-70.0); Platelet Count 146 th/mm3 (150-450); Red Blood Count 3.87 mil/mm3 (4.50-5.90); Red Cell Distribution Width 14.7 % (11.6-17.2); White Blood Count 6.1 th/mm3 (4.0-11.0)
[2018-09-17] MEDS: Sod Chloride 0.9% Inj 1,000 ML IV.CONT SCH ×2 (08:01→12:02)
[2018-09-17 08:07] LABS: Calcium 8.4 mg/dL (8.5-10.1); Carbon Dioxide 25.6 meq/L (21.0-32.0); Potassium 3.7 meq/L (3.5-5.1)
[2018-09-17] MEDS ORDERED: Non-Formulary Drug (Lactobacillus Rhamnosus Gg [Culturelle] 1 CAP) PO SCH (09:00)
[2018-09-17] MEDS ORDERED: Lisinopril 10 MG Tablet PO SCH (09:00)
[2018-09-17] MEDS: Amantadine 100 MG Capsule PO SCH ×2 (10:37→20:45)
--- NOTE | 2018-09-17 10:55 | P.PN ---
Subjective Interval history: f/u ileus and renal mass. Complains of mild left lower quadrant pain. He is passing gas no BM. Denies urinary complaints but had retention and hematuria last night. Seen with family Physical Exam Vital signs: Vital Signs 09/16/18 13:00 09/16/18 16:00 09/16/18 20:00 Temperature 98.2 F 98.7 F Pulse Rate 72 79 70 Respiratory Rate 16 18 14 Blood Pressure 165/77 H 196/95 H 154/74 H Pulse Oximetry 98 96 98 09/17/18 00:00 09/17/18 04:00 09/17/18 08:00 Temperature 98.7 F 98.4 F 98.8 F Pulse Rate 69 71 64 Respiratory Rate 16 14 16 Blood Pressure 138/69 163/78 H 158/74 H Pulse Oximetry 96 97 99 Intake & Output 09/16/18 09/17/18 09/17/18 18:59 06:59 18:59 Intake Total 1400 / 1400 600 / 600 700 / 700 Output Total 215 / 215 Balance 1400 / 1400 385 / 385 700 / 700 Weight 64.41 kg 64.41 kg Intake: IV 1400 / 1400 600 / 600 700 / 700 NS Inj 1,000 ML @ 80 mls/hr IV. 1400 / 1400 600 / 600 700 / 700 CONT .[id number] [facility] Rx#:[id number] Output: Urine 215 / 215 Other: # Voids 1 Weight On Admission 64.41 kg Narrative: GENERAL: cachectic, No acute distress. SKIN: Focused skin assessment warm/dry. CARDIOVASCULAR: Regular rate and rhythm without murmurs, gallops, or rubs. RESPIRATORY: Breath sounds equal bilaterally. No accessory muscle use. GASTROINTESTINAL: Abdomen soft, nontender, positive ventral hernia. MUSCULOSKELETAL: No cyanosis, Edema 1+ BACK: Nontender without obvious deformity. No CVA tenderness. Results - Labs CBC & Chem 7: 09/17/18 06:29 09/17/18 06:29 Laboratory Results - last 24 hr 09/16/18 09/16/18 09/17/18 16:32 16:32 03:27 WBC RBC Hgb Hct MCV MCH MCHC RDW Plt Count MPV Neut % (Auto) Lymph % (Auto) [place] % (Auto) Eos % (Auto) Baso % (Auto) Neut # (Auto) Lymph # (Auto) [place] # (Auto) Eos # (Auto) Baso # (Auto) WBC Differential Differential Comment Sodium Potassium Chloride Carbon Dioxide Anion Gap BUN Creatinine Estimated GFR POC Glucose 96 Random Glucose Hemoglobin A1c 5.0 Calcium Triglycerides 74 Cholesterol 198 LDL Cholesterol, Calc 133 H HDL Cholesterol 50.1 Cholesterol/HDL Ratio 3.95 TSH 1.380 09/17/18 09/17/18 06:29 06:29 WBC 6.1 RBC 3.87 L Hgb 12.3 L Hct 38.3 L MCV 98.8 D MCH 31.8 MCHC 32.2 RDW 14.7 Plt Count 146 L MPV 9.3 Neut % (Auto) 78.9 H Lymph % (Auto) 12.0 [place] % (Auto) 8.0 Eos % (Auto) 0.6 Baso % (Auto) 0.5 Neut # (Auto) 4.8 Lymph # (Auto) 0.7 L [place] # (Auto) 0.5 Eos # (Auto) 0.0 Baso # (Auto) 0.0 WBC Differential . Differential Comment Auto diff final Sodium 142 Potassium 3.7 Chloride 108 H Carbon Dioxide 25.6 Anion Gap 8 BUN 15 Creatinine 1.02 Estimated GFR 70 L POC Glucose Random Glucose 92 Hemoglobin A1c Calcium 8.4 L Triglycerides Cholesterol LDL Cholesterol, Calc HDL Cholesterol Cholesterol/HDL Ratio TSH - Imaging ITS Impressions Abdomen/Pelvis CT 09/16/18 01:58 CONCLUSION: 1. 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 2. Nonspecific bowel gas pattern which may represent an ileus or gastroenteritis. A small bowel obstruction is less likely. 3. Small nonobstructing right renal calculus. Chest X-Ray 09/16/18 01:58 CONCLUSION: No acute cardiopulmonary disease. - Procedures none Assessment and Plan - Plan 1. Intractable Abdominal pain status post CT abdomen and Pelvis, found. 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 Gu recommends op f/u pending Chest CT. Oncology also consulted. Had hematuria and retention. Ct Oxybutynin and flomax. Bladder scan 2. Ileus. Advance diet as tolerated josé antonio order clears 3. Parkinson's Disease to continue home medicines. 4. Hypertension. Improving. Continue Home medicines. PT eval DVT prophylaxis with SCDs contraindicated Chemical Prophylaxis due to probable procedure to follow. Discharge Planning: possible dc in 1-2 days with [facility] PT
[2018-09-17] MEDS ORDERED: Morphine Inj 4 MG/ML Vial IV.PUSH PRN (11:11)
[2018-09-17] MEDS ORDERED: Ketorolac Inj 30 MG/ML (IVP) Vial IV.PUSH PRN (11:11)
[2018-09-17] MEDS ORDERED: Naloxone Inj 0.4 MG/ML Vial IV.PUSH PRN (11:11)
[2018-09-17] MEDS ORDERED: Acetaminophen 325 MG Tablet PO PRN (11:11)
[2018-09-17] MEDS: Ketorolac Inj 30 MG/ML (IVP) Vial IV.PUSH PRN (11:37)
[2018-09-17] MEDS: Pantoprazole Inj 40 MG Vial IV.PUSH SCH (13:41)
--- NOTE | 2018-09-17 13:41 | CT ---
EXAM DATE: 09/17/2018 1:28 PM EST AGE/SEX: 82 years / Male INDICATIONS: Large left renal mass, evaluate for metastatic disease. CLINICAL DATA: This is the patient's initial encounter. Patient reports that signs and symptoms have been present for 1 day and indicates a pain score of 2/10. MEDICAL/SURGICAL HISTORY: Hypertension. Parkinson's disease. Ventral hernia. . Hernia repair. RADIATION DOSE: 6.90 CTDI (mGy) COMPARISON: [facility] [place], CT ABDOMEN & PELVIS W CONTRAST, 09/16/2018. . TECHNIQUE: Multiple contiguous axial images were obtained through the chest without contrast. Image s were obtained in suspended respiration using multiple row detector helical technique. Using automa arjun exposure control and adjustment of the mA and/or kV according to patient size, radiation dose was kept as low as reasonably achievable to obtain optimal diagnostic quality images. DICOM format imag e data is available electronically for review and comparison. FINDINGS: Lungs: Minimal apical emphysematous changes. No suspicious lung lesions. Mediastinum: There is good visualization of the great vessels of the middle mediastinum. No evidenc e of mediastinal or hilar adenopathy/mass. Moderate atherosclerotic vascular calcifications including LAD. Pleurae: Minimal pleural thickening on the right Axillae: Unremarkable. Bony Structures: Degenerative changes evident Miscellaneous: Left Renal cell carcinoma. CONCLUSION: 1. Negative for metastatic disease. 2. Apical emphysematous changes with moderate coronary calcifications. Electronically signed by: Kali Marino MD 09/17/2018 1:40 PM EST
--- NOTE | 2018-09-17 13:57 | P.DCO ---
- Diagnosis (1) Ileus Status: Acute (2) Left kidney mass Status: Acute - Physical Therapy Order: Evaluate and treat, Improve ambulation, Strength and gait training - Case Management Consult Case Management Consult-Home Health: Yes - Certification I have seen patient Isidro Tong on 09/17/18. My clinical findings support the need for the requested home health care services because: Deconditioned with increased weakness I certify that my clinical findings support that this patient is homebound because: Unsteady gait/balance
--- NOTE | 2018-09-17 19:07 | P.PNGI ---
Subjective Interval history: Patient laying comfortably in bed Denies any abdominal pain nausea or vomiting <MayorgaMag renaeStephanie - Last Filed: 09/17/18 19:02> Physical Exam Vital signs: Vital Signs 09/16/18 20:00 09/17/18 00:00 09/17/18 04:00 Temperature 98.7 F 98.7 F 98.4 F Pulse Rate 70 69 71 Respiratory Rate 14 16 14 Blood Pressure 154/74 H 138/69 163/78 H Pulse Oximetry 98 96 97 09/17/18 08:00 09/17/18 16:00 Temperature 98.8 F 97.4 F L Pulse Rate 64 75 Respiratory Rate 16 18 Blood Pressure 158/74 H 170/85 H Pulse Oximetry 99 99 Intake & Output 09/17/18 09/17/18 09/18/18 06:59 18:59 06:59 Intake Total 600 / 600 1700 / 1700 Output Total 215 / 215 Balance 385 / 385 1700 / 1700 Weight 64.41 kg Intake: IV 600 / 600 1700 / 1700 NS Inj 1,000 ML @ 80 mls/hr IV. 600 / 600 1700 / 1700 CONT .[id number] [facility] Rx#:[id number] Output: Urine 215 / 215 Other: # Voids 1 5 - Constitutional no acute distress - Routine HEENT Exam Head: Present: normocephalic - Routine Respiratory Exam Absent: accessory muscle use - Routine Abdominal Exam Present: soft. Absent: tenderness, guarding, firm Comments: Distant bowel sounds - Routine Skin Exam Present: dry, warm - Routine Neurological Exam Present: alert <MayorgaStephanie - Last Filed: 09/17/18 19:02> Vital signs: Vital Signs 09/16/18 20:00 09/17/18 00:00 09/17/18 04:00 Temperature 98.7 F 98.7 F 98.4 F Pulse Rate 70 69 71 Respiratory Rate 14 16 14 Blood Pressure 154/74 H 138/69 163/78 H Pulse Oximetry 98 96 97 09/17/18 08:00 09/17/18 16:00 Temperature 98.8 F 97.4 F L Pulse Rate 64 75 Respiratory Rate 16 18 Blood Pressure 158/74 H 170/85 H Pulse Oximetry 99 99 Intake & Output 11/16/18 11/16/18 11/17/18 06:59 18:59 06:59 Intake Total 600 / 600 1700 / 1700 Output Total 215 / 215 Balance 385 / 385 1700 / 1700 Weight 64.41 kg Intake: IV 600 / 600 1700 / 1700 NS Inj 1,000 ML @ 80 mls/hr IV. 600 / 600 1700 / 1700 CONT .[id number] [facility] Rx#:[id number] Output: Urine 215 / 215 Other: # Voids 1 5 <HemramyaAmmar - Last Filed: 09/17/18 19:25> Results - Labs CBC & Chem 7: 09/17/18 06:29 09/17/18 06:29 Laboratory Results - last 24 hr 09/16/18 09/17/18 09/17/18 16:32 03:27 06:29 WBC 6.1 RBC 3.87 L Hgb 12.3 L Hct 38.3 L MCV 98.8 D MCH 31.8 MCHC 32.2 RDW 14.7 Plt Count 146 L MPV 9.3 Neut % (Auto) 78.9 H Lymph % (Auto) 12.0 [place] % (Auto) 8.0 Eos % (Auto) 0.6 Baso % (Auto) 0.5 Neut # (Auto) 4.8 Lymph # (Auto) 0.7 L [place] # (Auto) 0.5 Eos # (Auto) 0.0 Baso # (Auto) 0.0 WBC Differential . Differential Comment Auto diff final Sodium Potassium Chloride Carbon Dioxide Anion Gap BUN Creatinine Estimated GFR POC Glucose 96 Random Glucose Hemoglobin A1c 5.0 Calcium 09/17/18 06:29 WBC RBC Hgb Hct MCV MCH MCHC RDW Plt Count MPV Neut % (Auto) Lymph % (Auto) [place] % (Auto) Eos % (Auto) Baso % (Auto) Neut # (Auto) Lymph # (Auto) [place] # (Auto) Eos # (Auto) Baso # (Auto) WBC Differential Differential Comment Sodium 142 Potassium 3.7 Chloride 108 H Carbon Dioxide 25.6 Anion Gap 8 BUN 15 Creatinine 1.02 Estimated GFR 70 L POC Glucose Random Glucose 92 Hemoglobin A1c Calcium 8.4 L - Imaging Impressions Chest CT 09/17/18 00:00 CONCLUSION: 1. Negative for metastatic disease. 2. Apical emphysematous changes with moderate coronary calcifications. - Procedures none <Mayorga,Stephanie - Last Filed: 09/17/18 19:02> - Labs CBC & Chem 7: 09/17/18 06:29 09/17/18 06:29 Laboratory Results - last 24 hr 09/16/18 09/17/18 09/17/18 16:32 03:27 06:29 WBC 6.1 RBC 3.87 L Hgb 12.3 L Hct 38.3 L MCV 98.8 D MCH 31.8 MCHC 32.2 RDW 14.7 Plt Count 146 L MPV 9.3 Neut % (Auto) 78.9 H Lymph % (Auto) 12.0 [place] % (Auto) 8.0 Eos % (Auto) 0.6 Baso % (Auto) 0.5 Neut # (Auto) 4.8 Lymph # (Auto) 0.7 L [place] # (Auto) 0.5 Eos # (Auto) 0.0 Baso # (Auto) 0.0 WBC Differential . Differential Comment Auto diff final Sodium Potassium Chloride Carbon Dioxide Anion Gap BUN Creatinine Estimated GFR POC Glucose 96 Random Glucose Hemoglobin A1c 5.0 Calcium 09/17/18 06:29 WBC RBC Hgb Hct MCV MCH MCHC RDW Plt Count MPV Neut % (Auto) Lymph % (Auto) [place] % (Auto) Eos % (Auto) Baso % (Auto) Neut # (Auto) Lymph # (Auto) [place] # (Auto) Eos # (Auto) Baso # (Auto) WBC Differential Differential Comment Sodium 142 Potassium 3.7 Chloride 108 H Carbon Dioxide 25.6 Anion Gap 8 BUN 15 Creatinine 1.02 Estimated GFR 70 L POC Glucose Random Glucose 92 Hemoglobin A1c Calcium 8.4 L - Imaging Impressions Chest CT 09/17/18 00:00 CONCLUSION: 1. Negative for metastatic disease. 2. Apical emphysematous changes with moderate coronary calcifications. <Keaton Eid - Last Filed: 09/17/18 19:25> Assessment and Plan (1) Ileus Status: Acute Code(s): K56.7 - Ileus, unspecified - Plan 09/17/2018 Abdominal pain Ileus Patient resting comfortably and denies any abdominal pain nausea or vomiting at this time. Hemoglobin 12.3 hematocrit 38.3 platelet count 146 Plan -Clear liquid diet -Oncology following -Urology following -Continue to monitor labs -Analgesics and antiemetics as per attending -PPI -Supportive care -Further recommendations to follow This patient has been seen by myself and Dr. Eid and this note is written on his behalf - Attending Attestation Dr. Eid <Stephanie Mayorga - Last Filed: 09/17/18 19:02> (1) Ileus Status: Acute Code(s): K56.7 - Ileus, unspecified - Plan Patient was seen and examined, agree with above note, antiemetics and supportive care at this point, hemoglobin stable, symptoms subsiding <Keaton Eid - Last Filed: 09/17/18 19:25>
[2018-09-17] MEDS: Carbidopa/Levodopa CR 50/200 MG Tablet PO SCH (20:44)
[2018-09-18] MEDS: Sod Chloride 0.9% Inj 1,000 ML IV.CONT SCH ×2 (01:49→14:44)
[2018-09-18] MEDS: Ketorolac Inj 30 MG/ML (IVP) Vial IV.PUSH PRN (01:50)
--- NOTE | 2018-09-18 06:52 | XR ---
EXAM DATE: 09/18/2018 6:41 AM EST AGE/SEX: 82 years / Male INDICATIONS: Abdominal distention. CLINICAL DATA: This is the patient's subsequent encounter. Patient reports that signs and symptoms h ave been present for 3 days and indicates a pain score of 0/10. MEDICAL/SURGICAL HISTORY: . Hypertension. Parkinson's disease. Ventral hernia. . Hernia repai r. COMPARISON: No prior exams available for comparison. FINDINGS: The abdominal bowel gas pattern is normal. No abnormal masses, calcifications, or organomegaly is s een. The osseous structures are unremarkable. CONCLUSION: Stool and air throughout the colon. Previous hernia surgery Electronically signed by: Asael Mantilla MD 09/18/2018 6:50 AM EST
[2018-09-18 07:16] LABS: Baso % (Auto) 0.6 % (0.0-2.0); Eos # (Auto) 0.1 th/mm3 (0.0-0.4); Eos % (Auto) 0.9 % (0.0-4.0); Hematocrit 39.1 % (39.0-51.0); Hemoglobin 13.2 gm/dL (13.0-17.0); Lymph # (Auto) 0.6 th/mm3 (1.0-4.8); Lymph % (Auto) 9.3 % (9.0-44.0); Mean Corpuscular HGB Conc 33.7 % (32.0-36.0); Mean Corpuscular Hemoglobin 31.1 pg (27.0-34.0); Mean Corpuscular Volume 92.4 fL (80.0-100.0); Mono # (Auto) 0.6 th/mm3 (0.0-0.9); Mono % (Auto) 9.6 % (0.0-8.0); Neut # (Auto) 5.2 th/mm3 (1.8-7.7); Neut % (Auto) 79.6 % (16.0-70.0); Platelet Count 133 th/mm3 (150-450); Red Blood Count 4.24 mil/mm3 (4.50-5.90); Red Cell Distribution Width 13.5 % (11.6-17.2); White Blood Count 6.6 th/mm3 (4.0-11.0)
[2018-09-18 07:34] LABS: Calcium 8.7 mg/dL (8.5-10.1); Carbon Dioxide 22.9 meq/L (21.0-32.0); Potassium 3.5 meq/L (3.5-5.1)
[2018-09-18 07:44] VITALS: PULSE 88; O2SAT 98
[2018-09-18] MEDS ORDERED: Bisacodyl 10 MG Supp RECTAL PRN (08:43)
[2018-09-18] MEDS: Amantadine 100 MG Capsule PO SCH (08:58)
[2018-09-18] MEDS ORDERED: Lisinopril 10 MG Tablet PO SCH (09:00)
[2018-09-18] MEDS ORDERED: Senna/Docusate Sodium 8.6/50 MG Tablet PO SCH (09:00)
[2018-09-18] MEDS ORDERED: Potassium Bicarbonate 25 MEQ Effervescent Tablet PO ONE (10:00)
[2018-09-18 12:15] VITALS: BP 164/91; RESP 20; TEMP 97.8
--- NOTE | 2018-09-18 12:42 | P.PN ---
Subjective Interval history: F/u Ileus. No abd pain and nausea. Passing gas no BM Physical Exam Vital signs: Vital Signs 09/17/18 16:00 09/17/18 20:00 09/18/18 00:00 Temperature 97.4 F L 98.0 F 98.2 F Pulse Rate 75 82 70 Respiratory Rate 18 18 18 Blood Pressure 170/85 H 144/68 H 179/84 H Pulse Oximetry 99 95 98 09/18/18 04:00 09/18/18 04:54 09/18/18 07:44 Temperature 97.9 F 97.4 F L Pulse Rate 92 H 88 Respiratory Rate 18 16 Blood Pressure 183/91 H 178/87 H 161/83 H Pulse Oximetry 97 98 09/18/18 12:00 Temperature 97.8 F Pulse Rate 88 Respiratory Rate 20 Blood Pressure 164/91 H Pulse Oximetry 98 Intake & Output 09/17/18 09/18/18 09/18/18 18:59 06:59 18:59 Intake Total 1700 / 1700 1000 / 1000 Balance 1700 / 1700 1000 / 1000 Intake: IV 1700 / 1700 1000 / 1000 NS Inj 1,000 ML @ 80 mls/hr IV. 1700 / 1700 1000 / 1000 CONT .[id number] [facility] Rx#:[id number] Other: # Voids 5 Narrative: GENERAL: cachectic, No acute distress. SKIN: Focused skin assessment warm/dry. CARDIOVASCULAR: Regular rate and rhythm without murmurs, gallops, or rubs. RESPIRATORY: Breath sounds equal bilaterally. No accessory muscle use. GASTROINTESTINAL: Abdomen soft, nontender, positive ventral hernia. MUSCULOSKELETAL: No cyanosis, Edema 1+ Results - Labs CBC & Chem 7: 09/18/18 06:45 09/18/18 06:45 Laboratory Results - last 24 hr 09/18/18 09/18/18 06:45 06:45 WBC 6.6 RBC 4.24 L Hgb 13.2 Hct 39.1 MCV 92.4 D MCH 31.1 MCHC 33.7 RDW 13.5 Plt Count 133 L MPV 9.0 Neut % (Auto) 79.6 H Lymph % (Auto) 9.3 [place] % (Auto) 9.6 H Eos % (Auto) 0.9 Baso % (Auto) 0.6 Neut # (Auto) 5.2 Lymph # (Auto) 0.6 L [place] # (Auto) 0.6 Eos # (Auto) 0.1 Baso # (Auto) 0.0 WBC Differential . Differential Comment Auto diff final Sodium 141 Potassium 3.5 Chloride 107 Carbon Dioxide 22.9 Anion Gap 11 BUN 13 Creatinine 1.15 Estimated GFR 61 L Random Glucose 116 H Calcium 8.7 Magnesium 2.0 - Imaging Impressions Chest CT 09/17/18 00:00 CONCLUSION: 1. Negative for metastatic disease. 2. Apical emphysematous changes with moderate coronary calcifications. Abdomen X-Ray 09/18/18 06:00 CONCLUSION: Stool and air throughout the colon. Previous hernia surgery - Procedures none Assessment and Plan - Assessment (1) Ileus Code(s): K56.7 - Ileus, unspecified Status: Acute (2) Left kidney mass Code(s): N28.89 - Other specified disorders of kidney and ureter Status: Acute - Plan 1. Intractable Abdominal pain status post CT abdomen and Pelvis, found. 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 Chest CT w/o mets. Resolved abdominal pain. Mild intermittent hematuria w/o urinary retention. Continue Flomax and oxybutynin. O/p f/u with and Oncology. 2. Ileus. Resolving. Advance diet as tolerated we will order regular diet. Continue bowel regimen 3. Parkinson's Disease to continue home medicines. 4. Hypertension. Improving. Continue Home medicines increase lisinopril to 10 mg twice a day. PT recommends home care DVT prophylaxis with SCDs and early ambulation Discharge Planning: Dc after BM
--- NOTE | 2018-09-18 12:45 | P.DS ---
Date of admission: 09/16/18 05:35 Primary care physician: UNKNOWN Brief History from admission: This is a pleasant 82 y/o male who came to the emergency department by EMS transport from home for some complaint of severe generalized abdominal pain primarily periumbilical with marked nausea and some spitting up no bilious emesis no coffee-ground emesis and no hematemesis. Patient denies any melena hematochezia or diarrhea. No fever or chills. No dysuria frequency urgency or hematuria. No injury or fall. No chest pain or shortness of breath. Patient rates pain as moderate to severe. Nonradiating. as constant abdominal pain, periumbilical, as a cramping sensation, he has Parkinson's Disease and Hypertension that was uncontrolled on admission, seen in the presence of his , he is been having this symptomatology since March this year and as per his words they slept on the evidence of GI symptoms and weight loss. DS: Diagnosis - Discharge Diagnosis (1) Ileus Status: Acute (2) Left kidney mass Status: Acute DS: Medications - Discharge Medications Prescriptions: sennosides-docusate sodium [Senna Plus] 1 tab PO BID #30 tab DS: Summary Hospital Course: 1. Intractable Abdominal pain status post CT abdomen and Pelvis, found. 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 Chest CT w/o mets. Resolved abdominal pain. Mild intermittent hematuria w/o urinary retention. Continue Flomax and oxybutynin. O/p f/u with and Oncology. 2. Ileus. Resolving. Advance diet as tolerated we will order regular diet. Continue bowel regimen 3. Parkinson's Disease to continue home medicines. 4. Hypertension. Improving. Continue Home medicines increase lisinopril to 10 mg twice a day. PT recommends home care DVT prophylaxis with SCDs and early ambulation - Time Spent with Patient Total time spent providing and/or coordinating discharge services: Greater than 30 minutes - Quality: VTE Deep Vein Thrombosis/Pulmonary Embolism Present on Admission: No Exam Vital signs: Vital Signs 09/17/18 16:00 09/17/18 20:00 09/18/18 00:00 Temperature 97.4 F L 98.0 F 98.2 F Pulse Rate 75 82 70 Respiratory Rate 18 Blood Pressure 170/85 H 144/68 H 179/84 H Pulse Oximetry 99 95 98 09/18/18 04:00 09/18/18 04:54 09/18/18 07:44 Temperature 97.9 F 97.4 F L Pulse Rate 92 H 88 Respiratory Rate 18 16 Blood Pressure 183/91 H 178/87 H 161/83 H Pulse Oximetry 97 98 09/18/18 12:00 Temperature 97.8 F Pulse Rate 88 Respiratory Rate 20 Blood Pressure 164/91 H Pulse Oximetry 98 Intake & Output 09/17/18 09/18/18 09/18/18 18:59 06:59 18:59 Intake Total 1700 / 1700 1000 / 1000 Balance 1700 / 1700 1000 / 1000 Intake: IV 1700 / 1700 1000 / 1000 NS Inj 1,000 ML @ 80 mls/hr IV. 1700 / 1700 1000 / 1000 CONT .[id number] [facility] Rx#:[id number] Other: # Voids 5 Narrative: GENERAL: cachectic, No acute distress. SKIN: Focused skin assessment warm/dry. CARDIOVASCULAR: Regular rate and rhythm without murmurs, gallops, or rubs. RESPIRATORY: Breath sounds equal bilaterally. No accessory muscle use. GASTROINTESTINAL: Abdomen soft, nontender, positive ventral hernia. MUSCULOSKELETAL: No cyanosis, Edema 1+ Results Procedures completed during hospitalization: none Labs on day of discharge: Labs from last 24 hours 09/18/18 09/18/18 06:45 06:45 WBC 6.6 RBC 4.24 L Hgb 13.2 Hct 39.1 MCV 92.4 D MCH 31.1 MCHC 33.7 RDW 13.5 Plt Count 133 L MPV 9.0 Neut % (Auto) 79.6 H Lymph % (Auto) 9.3 [place] % (Auto) 9.6 H Eos % (Auto) 0.9 Baso % (Auto) 0.6 Neut # (Auto) 5.2 Lymph # (Auto) 0.6 L [place] # (Auto) 0.6 Eos # (Auto) 0.1 Baso # (Auto) 0.0 WBC Differential . Differential Comment Auto diff final Sodium 141 Potassium 3.5 Chloride 107 Carbon Dioxide 22.9 Anion Gap 11 BUN 13 Creatinine 1.15 Estimated GFR 61 L Random Glucose 116 H Calcium 8.7 Magnesium 2.0 - Impressions ITS Impressions Abdomen/Pelvis CT 09/16/18 01:58 CONCLUSION: 1. 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 2. Nonspecific bowel gas pattern which may represent an ileus or gastroenteritis. A small bowel obstruction is less likely. 3. Small nonobstructing right renal calculus. Chest X-Ray 09/16/18 01:58 CONCLUSION: No acute cardiopulmonary disease. Chest CT 09/17/18 00:00 CONCLUSION: 1. Negative for metastatic disease. 2. Apical emphysematous changes with moderate coronary calcifications. Abdomen X-Ray 09/18/18 06:00 CONCLUSION: Stool and air throughout the colon. Previous hernia surgery Discharge Plan - Discharge Disposition Patient Disposition: /Home Health Service - Discharge Condition Condition: Stable - Discharge Order Discharge Orders: Discharge Order (Routine); Ordered 09/18/18 Ordered By: Reymundo Wesley - Physicians Team Primary Care Provider: UNKNOWN, Attending Provider: Reymundo Wesley Other Providers: Sigifredo Lake MD ; Anton Walton ; Keaton Eid MD ; Julius Connors MD
--- NOTE | 2018-09-18 15:34 | P.PNGI ---
Subjective Interval history: Patient sitting up at bedside Denies abdominal pain nausea or vomiting Tolerated clear liquid breakfast well, will advance diet States passing gas no BM yet Physical Exam Vital signs: Vital Signs 09/17/18 16:00 09/17/18 20:00 09/18/18 00:00 Temperature 97.4 F L 98.0 F 98.2 F Pulse Rate 75 82 70 Respiratory Rate 18 18 18 Blood Pressure 170/85 H 144/68 H 179/84 H Pulse Oximetry 99 95 98 09/18/18 04:00 09/18/18 04:54 09/18/18 07:44 Temperature 97.9 F 97.4 F L Pulse Rate 92 H 88 Respiratory Rate 18 16 Blood Pressure 183/91 H 178/87 H 161/83 H Pulse Oximetry 97 98 09/18/18 12:00 Temperature 97.8 F Pulse Rate 88 Respiratory Rate 20 Blood Pressure 164/91 H Pulse Oximetry 98 Intake & Output 09/17/18 09/18/18 09/18/18 18:59 06:59 18:59 Intake Total 1700 / 1700 1000 / 1000 1000 / 1000 Balance 1700 / 1700 1000 / 1000 1000 / 1000 Intake: IV 1700 / 1700 1000 / 1000 1000 / 1000 NS Inj 1,000 ML @ 80 mls/hr IV. 1700 / 1700 1000 / 1000 1000 / 1000 CONT .[id number] [facility] Rx#:[id number] Other: # Voids 5 - Constitutional no acute distress - Routine HEENT Exam Head: Present: normocephalic - Routine Respiratory Exam Absent: accessory muscle use - Routine Abdominal Exam Present: soft, normoactive bowel sounds. Absent: tenderness, distended, guarding, firm - Routine Skin Exam Present: dry, warm - Routine Neurological Exam Present: alert - Routine Psychiatric Exam Present: normal affect, cooperative Results - Labs CBC & Chem 7: 09/18/18 06:45 09/18/18 06:45 Laboratory Results - last 24 hr 09/18/18 09/18/18 06:45 06:45 WBC 6.6 RBC 4.24 L Hgb 13.2 Hct 39.1 MCV 92.4 D MCH 31.1 MCHC 33.7 RDW 13.5 Plt Count 133 L MPV 9.0 Neut % (Auto) 79.6 H Lymph % (Auto) 9.3 [place] % (Auto) 9.6 H Eos % (Auto) 0.9 Baso % (Auto) 0.6 Neut # (Auto) 5.2 Lymph # (Auto) 0.6 L [place] # (Auto) 0.6 Eos # (Auto) 0.1 Baso # (Auto) 0.0 WBC Differential . Differential Comment Auto diff final Sodium 141 Potassium 3.5 Chloride 107 Carbon Dioxide 22.9 Anion Gap 11 BUN 13 Creatinine 1.15 Estimated GFR 61 L Random Glucose 116 H Calcium 8.7 Magnesium 2.0 - Imaging Impressions Abdomen X-Ray 09/18/18 06:00 CONCLUSION: Stool and air throughout the colon. Previous hernia surgery - Procedures none Assessment and Plan (1) Ileus Status: Acute Code(s): K56.7 - Ileus, unspecified - Plan 09/18/2018 Abdominal pain Ileus Patient sitting up at bedside resting comfortably. States tolerated clear liquid diet well without any abdominal pain nausea or vomiting. Bowel sounds present. Ileus resolving States passing gas but no BM yet. Hemoglobin 13.2 hematocrit 39.1 platelet count 133 Plan -Diet as tolerated-cardiac -Continue bowel regimen at home -Oncology following -Urology following -Continue PPI -Supportive care This patient was seen by Dr. Adame and myself and this note is written on his behalf - Attending Attestation Dr. Adame
== END 2018-09-18 15:39 | disposition home health service (06) ==
LOC: NEPC 01:34 → NEDA 01:34 → NEDH 08:48 → NEPFCDU 13:05
PROVIDERS: ADMIT Internal Medicine; ATTEND Internal Medicine
DX: N40.1 Benign prostatic hyperplasia with lower urinary tract symptoms; N20.0 Calculus of kidney; Z79.899 Other long term (current) drug therapy; I10 Essential (primary) hypertension; Z87.891 Personal history of nicotine dependence; K56.7 Ileus, unspecified; N28.89 Other specified disorders of kidney and ureter; G20 Parkinson's disease; I25.10 Atherosclerotic heart disease of native coronary artery without angina pectoris; K43.9 Ventral hernia without obstruction or gangrene; N32.0 Bladder-neck obstruction